=== PATIENT | male | born 1975 | race Caucasian/White ===

== ENCOUNTER → 2017-06-07 | Outpatient (REF) ==
--- NOTE | 2017-06-07 15:30 | Diagnostic Imaging Report ---
INDICATION: Back pain following lifting injury. EXAMINATION: Multiple views of the lumbar spine. FINDINGS: The lumbar vertebral body heights are maintained. No endplate irregularity. No fracture or traumatic malalignment. No acute appearing abnormality. IMPRESSION: No acute appearing abnormality. Dictated by: Dictated on workstation # [id number]
== END | disposition home or self-care (01) ==
LOC: OCC 14:58
PROVIDERS: ATTEND Nurse Practitioner Family
CPT/HCPCS: 72100

== ENCOUNTER → 2017-06-28 | Outpatient (REF) | payer OTHER ==
--- NOTE | 2017-06-28 11:20 | Diagnostic Imaging Report ---
PROCEDURE: MRI lumbar spine. TECHNIQUE: Multiplanar, multisequence MRI of the lumbar spine was performed without contrast. INDICATION: Back pain. FINDINGS: The alignment of the posterior spinal line is satisfactory. There is mild straightening of the lumbar spine. The vertebral body heights are preserved. Disc heights are also preserved. There is minimal disc desiccation only at L5-S1 level. The cauda equina and conus medullaris appear grossly unremarkable. There is mild edema in the endplates around L3-L4 and L4-L5 levels. There is otherwise no significant marrow signal abnormality. T11-T12: There is a right posterior-lateral disc extrusion with mild caudal migration seen. This results in moderate stenosis of the right lateral recess but no definite nerve compression. No central canal stenosis. The left lateral recess is patent. The foramina are patent. T12-L1: No disc herniation. There is mild facet hypertrophy. No central canal, lateral recess, or foraminal stenosis. L1-L2: No disc herniation. There is mild facet hypertrophy. No spinal canal or foraminal stenosis. L2-L3: No disc herniation. There is mild facet hypertrophy. No central canal, lateral recess, or foraminal stenosis. L3-L4: No disc herniation. There is mild/ moderate facet hypertrophy bilaterally. No spinal canal or foraminal stenosis. L4-L5: There is no disc herniation. There is moderate facet hypertrophy. No central canal stenosis. There is mild lateral recess stenosis on the right and mild/ moderate lateral recess stenosis on the left. The foramina are patent. L5/S1: There is a central disc protrusion with no central canal or lateral recess stenosis. The foramina demonstrate mild stenosis only on the right side. There is mild facet hypertrophy at this level. IMPRESSION: There is a right posterolateral disc extrusion with mild caudal migration seen at T11-T12 level resulting in moderate stenosis of the right lateral recess without central canal stenosis. No cord compression. Dictated by: Dictated on workstation # [id number]
== END | disposition home or self-care (01) ==
LOC: RAD 09:25
PROVIDERS: ATTEND Nurse Practitioner Family
CPT/HCPCS: 72148

== ENCOUNTER → 2017-06-28 | Outpatient (REF) ==
--- NOTE | 2017-06-28 11:04 | Diagnostic Imaging Report ---
2 views of the skull. INDICATION: History of ear surgery. Evaluate for metal for MRI. FINDINGS: No metallic foreign body seen about the ears, intracranially, or in the orbits. IMPRESSION: Unremarkable exam. Dictated by: Dictated on workstation # [id number]
== END | disposition home or self-care (01) ==
LOC: OCC 09:55
PROVIDERS: ATTEND Nurse Practitioner Family
CPT/HCPCS: 70250